=== PATIENT | male | born 1970 | race Caucasian/White ===

== ENCOUNTER 2016-07-14 10:41 | Emergency (ER) | payer OTHER ==
[~2016-07-14] VITALS: Ht 182.9 cm; Wt 75.0 kg
[2016-07-14 10:44] VITALS: BP 109/68; PULSE 70; RESP 16; TEMP 98.1; O2SAT 95
--- NOTE | 2016-07-14 11:47 | PD ---
HPI Chief Complaint: Injury Time Seen by Provider: 11:47 Travel History International Travel<30 days: No Contact w/Intl Traveler<30days: No Traveled to known affect area: No History of Present Illness HPI 46-year-old male with 2 weeks of left thumb pain and swelling. Patient states a "injury", where he was closing a [place] door and the left thumb was pulled" out of socket". And he went to a local urgent care. He states they thought it was dislocated, and wanted to do surgery to fix it. He has had trouble with This thumb for quite some time. Patient is a poor historian. He does not want surgery. He is asking for some total brace. He was to continue to be able to work. Patient is allergic to penicillin. [facility] Past Medical History Cancer: No Cardiovascular Problems: No Diminished Hearing: No Endocrine: No Genitourinary: No Immune Disorder: No Musculoskeletal: Yes ( DISC PROBLEMS NECK RT HAND FX) Neurologic: Yes Psychiatric: No Reproductive: No Respiratory: Yes (Asthma as child ) Integumentary: Yes (SKIN GRAFTS A CHILD) Immunizations Current: Yes Past Surgical History Other Surgery: Yes ("1973,head surgery,) Social History Alcohol Use: Yes (OCC) Tobacco Use: Yes (occ) Substance Use: No (denied drug use) Allergies-Medications (Allergen,Severity, Reaction): Coded Allergies: Penicillin (Verified Allergy, Unknown, Unknown, 07/14/16) Was told as a child of allergy Reported Meds & Prescriptions Reported Meds & Active Scripts Active Reported Aleve (Naproxen Sodium) 220 Mg Tab 220 Mg PO BID PRN Review of Systems ROS Limitations: Poor Historian Except as stated in HPI: all other systems reviewed are Neg General / Constitutional: No: Fever Eyes: No: Visual changes HENT: No: Headaches Cardiovascular: No: Chest Pain or Discomfort Respiratory: No: Shortness of Breath Gastrointestinal: No: Abdominal Pain Genitourinary: No: Dysuria Musculoskeletal: No: Pain Skin: No Rash Neurologic: No: Weakness Psychiatric: No: Depression Endocrine: No: Polydipsia Hematologic/Lymphatic: No: Easy Bruising Physical Exam Narrative GENERAL: Patient appears no acute distress. SKIN: Warm and dry. HEAD: Atraumatic. Normocephalic. EYES: Pupils equal and round. No scleral icterus. No injection or drainage. ENT: No nasal bleeding or discharge. Mucous membranes pink and moist. NECK: Trachea midline. No JVD. CARDIOVASCULAR: Regular rate and rhythm. RESPIRATORY: No accessory muscle use. Clear to auscultation. Breath sounds equal bilaterally. GASTROINTESTINAL: Abdomen soft, non-tender, nondistended. Hepatic and splenic margins not palpable. MUSCULOSKELETAL: Extremities without clubbing, cyanosis, or edema. Exam of the left hand shows swelling at the MIP joint of the left thumb. No obvious signs of dislocation otherwise. There is no ecchymosis or erythema. Range of motion is somewhat limited in the extension range of motion. NEUROLOGICAL: Awake and alert. No obvious cranial nerve deficits. Motor grossly within normal limits. Five out of 5 muscle strength in the arms and legs. Normal speech. PSYCHIATRIC: Appropriate mood and affect; insight and judgment normal. Data Data Last Documented VS Vital Signs Date Time Temp Pulse Resp B/P Pulse Ox O2 Delivery O2 Flow Rate FiO2 07/14/16 10:44 98.1 70 16 109/68 95 Room Air Orders Hand, Complete (Oev0stp) (07/14/16 11:36) [facility] Medical Decision Making Medical Screen Exam Complete: Yes Emergency Medical Condition: Yes Differential Diagnosis Left thumb strain. Arthritis. Fracture. Gout. Dislocation. Narrative Course Patient is medically stable at time of exam. X-rays performed of the left hand showing advanced arthritis per the radiologist. This is discussed with the patient feels the at the thumb is "out of socket". Call is placed to Dr. Rich, the hand surgeon and the patient is discussed. Dr. Rich agrees with the radiologist that the patient has significant arthritis in this joint, but no dislocation or fracture. He recommends a thumb spica splint for the next 2 weeks as well as an anti- inflammatory. These recommendations were discussed with the patient and he will follow Dr. Rich if symptoms do not improve or worsen. Patient is given ibuprofen 800 mg 3 times daily with food 2 weeks. Recommend picking up a Velcro thumb spica splint at one of the local pharmacies or surgical supply store. Patient should follow Dr. Rich if symptoms do not improve or worsen. Diagnosis Primary Impression: Injury of left thumb Qualified Code: S69.92XA - Injury of left thumb, initial encounter Additional Impression: Left thumb sprain Qualified Code: S63.642A - Sprain of metacarpophalangeal (MCP) joint of left thumb, initial encounter Referrals: Skyler Rich III, MD Patient Instructions: General Instructions Additional Instructions: Patient is given ibuprofen 800 mg 3 times daily with food 2 weeks. Recommend picking up a Velcro thumb spica splint at one of the local pharmacies or surgical supply store. Patient should follow Dr. Rich if symptoms do not improve or worsen. Med/Other Pt SpecificInfo: Prescription(s) given Disposition: DISCHARGE HOME Condition: Stable Nino Flores Jul 14, 2016 11:47
[2016-07-14] MEDS ORDERED: NAPR220T95 PO (11:56)
--- NOTE | 2016-07-14 12:40 | RADRPT ---
EXAM DATE/TIME: 07/14/2016 11:52 [facility] COMPARISON: HAND LEFT COMPLETE ([id number]), April 27, 2016, 12:27. INDICATIONS : Left thumb pain. MEDICAL HISTORY : Fracture/dislocation in 2015. SURGICAL HISTORY : None. ENCOUNTER: Initial ACUITY: 1 day PAIN SCORE: 3/10 LOCATION: Left Thumb FINDINGS: 3 views of the left hand. Old fracture deformity of the thumb metacarpal base. Moderate-sized osteoph ytes at the thumb CMC joint. Appearance is unchanged from 04/27/2016. No evidence of acute fracture. Small subchondral cyst of the proximal pole of the lunate. CONCLUSION: Moderate severity arthritic findings of the carpometacarpal joint, unchanged from the prior study of April 2016. Tim Champagne MD on July 14, 2016 at 12:35 Board Certified Radiologist. This report was verified electronically.
[2016-07-14] MEDS ORDERED: IBUP800T23 PO (13:17)
== END 2016-07-14 14:19 | disposition home or self-care (01) ==
LOC: NEPB 10:41
DX: S63.642A Sprain of metacarpophalangeal joint of left thumb, initial encounter (principal); S69.92XA Unspecified injury of left wrist, hand and finger(s), initial encounter; M19.042 Primary osteoarthritis, left hand; Z72.0 Tobacco use; Z87.39 Personal history of other diseases of the musculoskeletal system and connective tissue; Z86.69 Personal history of other diseases of the nervous system and sense organs; X58.XXXA Exposure to other specified factors, initial encounter
CPT/HCPCS: 73130; 99283

== ENCOUNTER 2016-12-20 12:06 | Emergency (ER) | payer SELFPAY ==
[~2016-12-20 12:06] MED LIST: IBUP800T23 PO; NAPR220T95 PO
[2016-12-20 12:09] VITALS: BP 106/56; PULSE 54; RESP 20; TEMP 97.4; O2SAT 98
--- NOTE | 2016-12-20 13:00 | PD ---
HPI Chief Complaint: Injury Time Seen by Provider: 12:56 Travel History International Travel<30 days: No Contact w/Intl Traveler<30days: No Traveled to known affect area: No History of Present Illness HPI 46-year-old male presents the emergency department with ongoing complaints of left thumb pain and swelling. Patient states he injured it last year and is convinced that is continued to be out of joint. Patient states he wants me to cut it and push it forward and put a "popsicle stick" in his hand. He states he saw Dr. Rich and was told that he could not fix it. Patient is convinced that the x-ray that I took in July is "lying to me due to the hikers outside of the hospital". He has full range of motion. He denies pain. He is allergic to penicillin. PFSH Past Medical History Cancer: No Cardiovascular Problems: No Diminished Hearing: No Endocrine: No Genitourinary: No Immune Disorder: No Musculoskeletal: Yes ( DISC PROBLEMS NECK RT HAND FX) Neurologic: Yes Psychiatric: No Reproductive: No Respiratory: Yes (Asthma as child ) Integumentary: Yes (SKIN GRAFTS A CHILD) Immunizations Current: Yes Past Surgical History Other Surgery: Yes ("1973,head surgery,) Social History Alcohol Use: Yes (OCC) Tobacco Use: Yes (occ) Substance Use: No (denied drug use) Allergies-Medications (Allergen,Severity, Reaction): Coded Allergies: Penicillin (Verified Allergy, Unknown, Unknown, 07/14/16) Was told as a child of allergy Reported Meds & Prescriptions Reported Meds & Active Scripts Active Ibuprofen 800 Mg Tab 800 Mg PO Q8H PRN Reported Aleve (Naproxen Sodium) 220 Mg Tab 220 Mg PO BID PRN Review of Systems Except as stated in HPI: all other systems reviewed are Neg General / Constitutional: No: Fever Eyes: No: Visual changes HENT: No: Headaches Cardiovascular: No: Chest Pain or Discomfort Respiratory: No: Shortness of Breath Gastrointestinal: No: Abdominal Pain Genitourinary: No: Dysuria Musculoskeletal: No: Pain Skin: No Rash Neurologic: No: Weakness Psychiatric: No: Depression Endocrine: No: Polydipsia Hematologic/Lymphatic: No: Easy Bruising Physical Exam Narrative GENERAL: Patient is in no acute distress. SKIN: Warm and dry. HEAD: Atraumatic. Normocephalic. EYES: Pupils equal and round. No scleral icterus. No injection or drainage. ENT: No nasal bleeding or discharge. Mucous membranes pink and moist. Pharynx is clear NECK: Trachea midline. Supple nontender. CARDIOVASCULAR: Regular rate and rhythm. RESPIRATORY: No accessory muscle use. Clear to auscultation. Breath sounds equal bilaterally. MUSCULOSKELETAL: Extremities without clubbing, cyanosis, or edema. Patient does have some swelling to the dorsal aspect of the MIP joint of the left thumb. This is nontender. Has full range of motion. Normal nursing support worker strength and pincher strength is noted. NEUROLOGICAL: Awake and alert. No obvious cranial nerve deficits. Motor grossly within normal limits. Five out of 5 muscle strength in the arms and legs. Normal speech. PSYCHIATRIC: Appropriate mood and affect; insight and judgment normal. I question this patient's psychological state as he seems convinced that his thumb is out of joint despite the negative x-ray. Data Data Last Documented VS Vital Signs Date Time Temp Pulse Resp B/P Pulse Ox O2 Delivery O2 Flow Rate FiO2 12/20/16 12:09 97.4 54 20 106/56 98 Room Air MDM Medical Decision Making Medical Screen Exam Complete: Yes Emergency Medical Condition: No Differential Diagnosis Left thumb arthritis. Question psychosis. History of left thumb dislocation. Narrative Course A medical screening exam was performed: At the time of evaluation the presenting medical condition was determined not to be of an emergent nature. The patient was given the option of receiving additional care, but declined. Patient was given options for additional community resources from which to obtain care. The Patient Has Been advised to seek medical attention for their presenting complaint. The patient has been advised to return to the ER at any time if an emergent condition develops. Condition: Stable Nino Flores Dec 20, 2016 13:00
== END 2016-12-20 13:17 | disposition left against medical advice (07) ==
LOC: NEPK 12:06
DX: M13.842 Other specified arthritis, left hand (principal); J45.909 Unspecified asthma, uncomplicated; Z79.899 Other long term (current) drug therapy; Z88.0 Allergy status to penicillin; Z72.0 Tobacco use
CPT/HCPCS: 99281

== ENCOUNTER 2017-10-04 10:36 | Emergency (ER) | payer SELFPAY ==
[~2017-10-04] VITALS: Ht 184.8 cm; Wt 77.0 kg
[~2017-10-04 10:36] MED LIST changes: +IBUP1TAB7 PO; -IBUP800T23 PO
[2017-10-04 10:39] VITALS: BP 132/63; PULSE 64; RESP 16; TEMP 98.9; O2SAT 97
[2017-10-04] MEDS ORDERED: MEDI220T PO (11:14)
--- NOTE | 2017-10-04 11:25 | PD ---
HPI Chief Complaint: Psychiatric Symptoms Time Seen by Provider: 11:18 Travel History International Travel<30 days: No Contact w/Intl Traveler<30days: No Traveled to known affect area: No History of Present Illness HPI 47-year-old male patient presents to the ER today because he states that he has history of bronchial asthma, and he states that he had drank water a few days ago from the [place], and states that he noticed an oily film on it, and since drinking the water, he has been having hallucinations. 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 He denies any previous suicidal attempts. He states that he has had some similar issues in the past and has been seen by psychiatrist and they had always told him is just bronchial asthma or dehydration. I have asked him whether this is specific to [email or web address] [place] and he states that he is not sure, states they could be any water. He denies any chest pains, trouble breathing, abdominal pains, vomiting, fevers, or other symptoms. He states that he just got thirsty and had ran out of his bottle water and was using [place] water. He had called his glass setter today and they told him to come to the ER to get the water checked. He says he thinks it could be spoiled. He also states that he has been having tingling in his hands and feet and arms and legs intermittently as well. Modifying Factors: None Associated Signs & Symptoms: Drank water and started having hallucinations, thinks the water might be spoiled Risk Factors: None PFSH Past Medical History Asthma: Yes Cancer: No Cardiovascular Problems: No Diminished Hearing: No Endocrine: No Genitourinary: No Immune Disorder: No Musculoskeletal: Yes ( DISC PROBLEMS NECK RT HAND FX) Neurologic: Yes Psychiatric: No Reproductive: No Respiratory: Yes (asthma) Integumentary: Yes (SKIN GRAFTS A CHILD) Immunizations Current: Yes Influenza Vaccination: No Past Surgical History Other Surgery: Yes ("1973,head surgery,) Social History Alcohol Use: Yes (OCC) Tobacco Use: Yes (occ) Substance Use: No (denied drug use) Allergies-Medications (Allergen,Severity, Reaction): Coded Allergies: penicillin G (Unverified Allergy, Unknown, Unknown, 10/04/17) Was told as a child of allergy Reported Meds & Prescriptions Reported Meds & Active Scripts Active Reported Naproxen Sodium 220 Mg Tab 220 Mg PO BID PRN Review of Systems Except as stated in HPI: all other systems reviewed are Neg Physical Exam Narrative GENERAL: Well-developed middle-age white male patient currently in no acute distress. Awake, alert, oriented 3. He is cooperative with exam, answering questions appropriately otherwise. SKIN: Focused skin assessment warm/dry. HEAD: Atraumatic. Normocephalic. EYES: Pupils equal and round. No scleral icterus. No injection or drainage. ENT: No nasal bleeding or discharge. Mucous membranes pink and moist. NECK: Trachea midline. No JVD. Supple. CARDIOVASCULAR: Regular rate and rhythm. No murmur appreciated. RESPIRATORY: No accessory muscle use. Clear to auscultation. Breath sounds equal bilaterally. GASTROINTESTINAL: Abdomen soft, non-tender, nondistended. Hepatic and splenic margins not palpable. MUSCULOSKELETAL: No obvious deformities. No clubbing. No cyanosis. No edema. NEUROLOGICAL: Awake and alert. No obvious cranial nerve deficits. Motor grossly within normal limits. Normal speech. PSYCHIATRIC: Appropriate mood and affect; insight poor and judgment normal. Data Data Last Documented VS Vital Signs Date Time Temp Pulse Resp B/P (MAP) Pulse Ox O2 Delivery O2 Flow Rate FiO2 10/04/17 10:39 98.9 64 16 132/63 (86) 97 Orders Orders Complete Blood Count With Diff (10/04/17 11:18) Comprehensive Metabolic Panel (10/04/17 11:18) Magnesium (Mg) (10/04/17 11:18) Ammonia (10/04/17 11:18) Drug Screen, Random Urine (10/04/17 11:18) Alcohol (Ethanol) (10/04/17 11:18) Labs Laboratory Tests Test 10/04/17 11:40 10/04/17 11:50 Urine Opiates Screen NEG Urine Barbiturates Screen NEG Urine Amphetamines Screen NEG Urine Benzodiazepines Screen NEG Urine Cocaine Screen NEG Urine Cannabinoids Screen NEG White Blood Count 4.9 TH/MM3 Red Blood Count 4.77 MIL/MM3 Hemoglobin 14.0 GM/DL Hematocrit 41.9 % Mean Corpuscular Volume 87.9 FL Mean Corpuscular Hemoglobin 29.4 PG Mean Corpuscular Hemoglobin Concent 33.4 % Red Cell Distribution Width 12.7 % Platelet Count 267 TH/MM3 Mean Platelet Volume 7.5 FL Neutrophils (%) (Auto) 57.8 % Lymphocytes (%) (Auto) 27.5 % Monocytes (%) (Auto) 10.0 % Eosinophils (%) (Auto) 2.9 % Basophils (%) (Auto) 1.8 % Neutrophils # (Auto) 2.9 TH/MM3 Lymphocytes # (Auto) 1.3 TH/MM3 Monocytes # (Auto) 0.5 TH/MM3 Eosinophils # (Auto) 0.1 TH/MM3 Basophils # (Auto) 0.1 TH/MM3 CBC Comment DIFF FINAL Differential Comment Blood Urea Nitrogen 21 MG/DL Creatinine 0.67 MG/DL Random Glucose 95 MG/DL Total Protein 6.4 GM/DL Albumin 3.5 GM/DL Calcium Level 9.7 MG/DL Magnesium Level 1.7 MG/DL Alkaline Phosphatase 95 U/L Aspartate Amino Transf (AST/SGOT) 18 U/L Alanine Aminotransferase (ALT/SGPT) 22 U/L Total Bilirubin 0.4 MG/DL Sodium Level 139 MEQ/L Potassium Level 4.1 MEQ/L Chloride Level 107 MEQ/L Carbon Dioxide Level 27.1 MEQ/L Anion Gap 5 MEQ/L Estimat Glomerular Filtration Rate 127 ML/MIN Ammonia 31 MCMOL/L Ethyl Alcohol Level LESS THAN 3 MG/DL MDM Medical Decision Making Medical Screen Exam Complete: Yes Emergency Medical Condition: Yes Medical Record Reviewed: Yes Interpretation(s) Laboratory Tests Test 10/04/17 11:40 10/04/17 11:50 Monocytes (%) (Auto) 10.0 % (0.0-8.0) Blood Urea Nitrogen 21 MG/DL (7-18) Differential Diagnosis Flashbacks and hallucinations, paresthesias after drinking water from a park: Water contamination versus anxiety attack versus psychiatric issues Narrative Course Patient currently is fairly cooperative, and when I point out that he could drink other sources of water, he states that he was told by his glass setter to come here to be evaluated because he thinks the water was bad. He states in the past , he has been seen by psychiatry, and they state that he was just dehydrated. He is not having any signs of overt aggression, not responding to any internal stimuli, awake, alert, oriented 3, answering questions appropriately. I have taught him regarding being evaluated medically but also perhaps being evaluated by psychiatry. However, he states that he has seen psych in the past for similar symptoms and they had not told him anything new. He apparently states that he would see his chiropractic teacher, but then hears something when he was a few years old, and being in the scene in high school and then hear something from third grade. However, when asked to specify regarding what else he is seeing, whether there is anything that is concerning him or violent, the patient denies it. He states that it just did not fit the scene. He denies hearing any voices currently or having any visual or auditory hallucinations here in the ER. At this point, I have offered to transfer him to the [facility] to see a psychiatrist on a voluntary basis to talk to them about his hallucinations. Patient states that they had told him the past that is just bronchial asthma or that he has dehydration. At this point, he is willing to go but states that he wants to get his bicycle transported as well. Unfortunately, I have talked to EVAC and charge nurse as well and we are not able to transport his bicycle as well. However, I have given him options about having him transported in as keeping his bicycle, and he can return to come get his bicycle via cab or via bus pass given to him from the [facility]. At this point, he declines those as well. He states he wants to speak to his glass setter first regarding this issue. He should return for any worsening in symptoms. He should return for any suicidal or homicidal ideation, or if symptoms are worsening or new issues. He is declining to talk to psychiatry at this time. He is also well come to go to the [facility] where there is psychiatry on premises and be evaluated there as well. I have discussed this option with him as well. He states understanding at this point I will be releasing him. He should follow-up with psychiatry for any continued symptoms. Diagnosis Primary Impression: Hallucinations Additional Instructions: You should follow-up with psychiatry if symptoms continue. You should refrain from drinking water from unknown sources. Return for any worsening in symptoms , any suicidal thoughts or aggressive thoughts or worsening in symptoms as needed. Disposition: 01 DISCHARGE HOME Condition: Stable Betzy Small MD Oct 04, 2017 11:25
[2017-10-04 12:00] LABS: AUTOMATED NEUTROPHIL # 2.9 TH/MM3 (1.8-7.7); BASOPHIL # 0.1 TH/MM3 (0-0.2); BASOPHIL % 1.8 % (0.0-2.0); EOSINOPHIL # 0.1 TH/MM3 (0-0.4); EOSINOPHIL % 2.9 % (0.0-4.0); HEMATOCRIT 41.9 % (39.0-51.0); LYMPH % 27.5 % (9.0-44.0); LYMPHOCYTE # 1.3 TH/MM3 (1.0-4.8); MEAN CELL VOLUME 87.9 FL (80.0-100.0); MEAN CORPUSCULAR HEMOGLOBIN 29.4 PG (27.0-34.0); MEAN CORPUSCULAR HGB CONC 33.4 % (32.0-36.0); MEAN PLATELET VOLUME 7.5 FL (7.0-11.0); MONOCYTE # 0.5 TH/MM3 (0-0.9); NEUT % 57.8 % (16.0-70.0); PLATELET COUNT 267 TH/MM3 (150-450); RED BLOOD COUNT 4.77 MIL/MM3 (4.50-5.90); RED CELL DISTRIBUTION WIDTH 12.7 % (11.6-17.2); WHITE BLOOD COUNT 4.9 TH/MM3 (4.0-11.0)
[2017-10-04 12:15] LABS: ALBUMIN 3.5 GM/DL (3.4-5.0); GLUCOSE,RANDOM 95 MG/DL (74-106)
[2017-10-04 12:16] LABS: BICARBONATE 27.1 MEQ/L (21.0-32.0); BLOOD UREA NITROGEN 21 MG/DL (7-18); MAGNESIUM 1.7 MG/DL (1.5-2.5)
[2017-10-04 12:19] LABS: ALT (GPT) 22 U/L (12-78); AST (GOT) 18 U/L (15-37)
[2017-10-04 12:20] LABS: CREATININE 0.67 MG/DL (0.60-1.30); GLOMERULAR FILTRATION RATE 127 ML/MIN (>89)
[2017-10-04 12:21] LABS: TOTAL BILIRUBIN ADULT 0.4 MG/DL (0.2-1.0); TOTAL PROTEIN 6.4 GM/DL (6.4-8.2)
[2017-10-04 12:22] LABS: ALKALINE PHOSPHATASE 95 U/L (45-117)
[2017-10-04 12:24] LABS: CHLORIDE 107 MEQ/L (98-107); SODIUM (NA) 139 MEQ/L (136-145)
[2017-10-04 12:57] LABS: CALCIUM 9.7 MG/DL (8.5-10.1)
== END 2017-10-04 14:17 | disposition home or self-care (01) ==
LOC: PHED 10:36
DX: R44.3 Hallucinations, unspecified (principal); R20.2 Paresthesia of skin; J45.909 Unspecified asthma, uncomplicated; Z72.0 Tobacco use; Z88.0 Allergy status to penicillin
CPT/HCPCS: 80053; 80307; 82140; 83735; 85025; 99283

== ENCOUNTER 2017-10-24 20:07 | Emergency (ER) | payer OTHER ==
[~2017-10-24] VITALS: Ht 185.4 cm; Wt 75.0 kg
[~2017-10-24 20:07] MED LIST changes: -IBUP1TAB7 PO; +MEDI220T PO; -NAPR220T95 PO
--- NOTE | 2017-10-24 20:22 | PD ---
HPI Chief Complaint: Alcohol/Drug Intoxication Time Seen by Provider: 20:20 Travel History International Travel<30 days: No Contact w/Intl Traveler<30days: No Traveled to known affect area: No History of Present Illness HPI This is a 47-year-old male who presents under [place] act initiated by the Police Department. Reportedly the patient was drinking at a [place]. He reports that he drank for [employer]. Apparently he caused a disturbance and refused to pay his bill and therefore police were called. The police elected to place him under [place] act to bring him to the hospital. He reports that he was "partying with someone" and that the other person is going to pay his bill but then apparently changed his mind at the last second. The patient currently splits his time between a motel and his aunt's house. He has no medical complaints at this time and would prefer to leave as soon as possible. PFSH Past Medical History Asthma: Yes Cancer: No Cardiovascular Problems: No Diminished Hearing: No Endocrine: No Genitourinary: No Immune Disorder: No Musculoskeletal: Yes ( DISC PROBLEMS NECK RT HAND FX) Neurologic: Yes Psychiatric: No Reproductive: No Respiratory: Yes (asthma) Integumentary: Yes (SKIN GRAFTS A CHILD) Immunizations Current: Yes Past Surgical History Other Surgery: Yes ("1973,head surgery,) Social History Alcohol Use: Yes (OCC) Tobacco Use: Yes (occ) Substance Use: No (denied drug use) Allergies-Medications (Allergen,Severity, Reaction): Coded Allergies: penicillin G (Unverified Allergy, Unknown, Unknown, 10/04/17) Was told as a child of allergy Reported Meds & Prescriptions Reported Meds & Active Scripts Active Reported Naproxen Sodium 220 Mg Tab 220 Mg PO BID PRN Review of Systems Except as stated in HPI: all other systems reviewed are Neg Physical Exam Narrative GENERAL: This is a well-nourished male no acute distress. He has mildly slurred speech but a steady gait. He is shirtless. He is wearing swim shorts. SKIN: Warm and dry. There is sand noted on his torso. Mild sunburn. HEAD: Atraumatic. Normocephalic. EYES: Pupils equal and round. No scleral icterus. No injection or drainage. ENT: No nasal bleeding or discharge. Mucous membranes pink and moist. NECK: Trachea midline. No JVD. CARDIOVASCULAR: Regular rate and rhythm. No murmur appreciated. RESPIRATORY: No accessory muscle use. Clear to auscultation. Breath sounds equal bilaterally. GASTROINTESTINAL: Abdomen soft, non-tender, nondistended. Hepatic and splenic margins not palpable. MUSCULOSKELETAL: No obvious deformities. No clubbing. No cyanosis. No edema. NEUROLOGICAL: Awake and alert. No obvious cranial nerve deficits. Motor grossly within normal limits. Mild slurred speech. Steady gait. Smiling and interactive. PSYCHIATRIC: Appropriate mood and affect; insight and judgment normal. Data Data Last Documented VS Vital Signs Date Time Temp Pulse Resp B/P (MAP) Pulse Ox O2 Delivery O2 Flow Rate FiO2 10/24/17 20:24 98.4 71 18 134/78 (96) 98 MDM Medical Decision Making Medical Screen Exam Complete: Yes Emergency Medical Condition: Yes Medical Record Reviewed: Yes Differential Diagnosis Alcohol intoxication, polysubstance abuse, closed head injury Narrative Course 47-year-old male presents under [place] act for evaluation of public intoxication at the [facility]. He is mildly intoxicated but he has a steady gait. When he is wholly sober he will be discharged. Diagnosis Primary Impression: Alcohol intoxication Med/Other Pt SpecificInfo: No Change to Meds Disposition: 01 DISCHARGE HOME Condition: Stable Iban Logan October 24, 2017 20:22
[2017-10-24 20:24] VITALS: BP 134/78; PULSE 71; RESP 18; TEMP 98.4; O2SAT 98
== END 2017-10-25 05:37 | disposition home or self-care (01) ==
LOC: NEDAMB 20:07 → NEPD 10-25 05:37
DX: F10.129 Alcohol abuse with intoxication, unspecified (principal); J45.909 Unspecified asthma, uncomplicated; Z72.0 Tobacco use; Z88.0 Allergy status to penicillin; Z79.899 Other long term (current) drug therapy
CPT/HCPCS: 99283